=== PATIENT | female | born 1945 | race Caucasian/White ===

== ENCOUNTER 2017-10-14 15:07 | Emergency (ER) | payer MEDICARE ==
--- OUTSIDE RECORDS SUMMARY | 2017-10-14 16:05 | XMS REPORT ---
:1945 External Reference #:[id number] Author Organization [facility] Address [address] [place] [address] Phone [phone] Care Team Providers Name Role Phone Edward Mclaughlin MD Care Team Information Food Service Utility Worker Unavailable Edward Mclaughlin MD Primary Care Physician Unavailable Payers Type Date Identification Numbers Payment Provider Subscriber Commercial Policy Number: [id number] Medicare Blue Ppo Micah Palmer Group Number: [id number] [address] [address] Group Name: [place] [address] PayID: [id number] Problems Date Description Provider Status Onset: 04/30/2008 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 Active uterine body Onset: 07/20/2010 Depressive disorder Edward Mclaughlin M.D. Active Onset: 10/26/2013 Adult health examination Edward Mclaughlin M.D. Active Onset: 04/17/2017 Premature beats Edward Mclaughlin M.D. Active Onset: 09/18/2016 Abnormal glucose level Edward Mclaughlin M.D. Active Onset: 12/23/2015 Senile hyperkeratosis Edward Mclaughlin M.D. Active Onset: 12/23/2015 Mixed hyperlipidemia Edward Mclaughlin M.D. 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 Active subcutaneous tissue Onset: 10/28/2014 Electrocardiogram abnormal Edward Mclaughlin M.D. Active Onset: 04/30/2008 Osteochondropathy Edward Mclaughlin M.D. Resolved Resolved: 10/28/2014 Onset: 10/26/2013 Hyperlipidemia Edward Mclaughlin M.D. Resolved Resolved: 10/28/2014 Onset: 10/26/2013 Anxiety state Edward Mclaughlin M.D. 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 every day Potassium / Active Capsules 10Meq 1 by Unknown Chloride ER 0000 ER mouth a day Bisoprolol / Active Tablets 5mg 1 po qd Unknown Fumarate 0000 Amoxicillin 10/02/ Hx Capsules 500mg 30caps 1 by J02.9 Ceci Jordan 2017 - mouth Jason HAZARDOUS MATERIAL SPECIALIST 10/08/ three 2018 times a day Sulfamethoxazo 02/27/ Hx Tablets 800-160mg 14tabs take 1 Janneth hewitt/Trimethopri 2015 - tablet by dori Walter 10/30/ mouth 2 [employer] 2017 times a day for 7 days Cipro 02/19/ Hx Tablets 250mg 14tabs 1 by Edward Orellana 2014 - mouth Arnoldo 02/28/ twice a M.D. 2014 day for 7 days Sulfamethoxazo 02/02/ Hx Tablets 800-160mg 14tabs take 1 Edward hewitt/Trimethopri 2015 - tablet by dori Mclaughlin DS 02/14/ mouth 2 M.D. 2015 times a day for 7 days Zostavax 10/28/ Hx Solution [id number] 1dose inject Edward F. 2015 - Rec .65ML Shallish, 10/28/ M.D. 2015 Doxycycline 10/28/ Hx Capsules 100mg 20caps take one Edward F. Hyclate 2014 - capsule Shallish, 11/08/ by mouth M.D. 2014 twice a day Zostavax 10/26/ Hx Solution [id number]/0 1dose inject Edward F. 2013 - Rec .65ML Shallish, 10/28/ M.D. 2014 Amoxicillin 09/29/ Hx Tablets 875mg 20tabs 1 po bid 465.9 Molly 2013 - x 10 ZARI Willett 10/24/ days 2013 Doxycycline 10/26/ Hx Capsules 100mg 2caps 2 po once 911.4 Petty Hyclate 2011 - Tamar, 07/24/ [employer] 2012 Evista 04/25/ Hx 60mg 90unit 1 po qd Edward F. 2003 - s Shallish, 03/29/ M.D. 2008 Bactrim DS 04/25/ Hx 20unit 1 po bid Edward F. 2003 - s Shallish, M.D. 2008 Pyridium 04/25/ Hx 100mg 15unit 1 PO tid Edward F. 2003 - s prn Shallish, M.D. 2008 Actonel 08/07/ Hx 5mg 30unit One PO qd Rick Rico 2001 - s Am 30Min Midura, 04/25/ Before M.D. 2003 Food Fosamax 06/18/ Hx 70mg 8units 1 po Edward F. 2000 - weekly Shallish, 04/25/ M.D. 2003 Toprol XL / Hx Tablets ER 25mg 1 by Unknown 0000 - 24HR mouth 04/17/ every day 2017 Immunizations CPT Code Status Date Vaccine Lot # [id number] Given 06/07/2015 High-Dose, Influenza Virus Vacccine-fluzone 65 and older [id number] Given 10/28/2014 Zostivax 25828 Given 10/28/2014 Pneumococcal Conjugate Vacc-13 [id number] 95101 Given 04/15/2014 High-Dose, Influenza Virus Vacccine-fluzone 65 and older 88704 Given 04/17/2013 DO Not Use Split Influenza Virus Vaccine [id number] Given 10/24/2012 Pneumococcal Immunization [id number] Given 06/04/2012 DO Not Use Split Influenza Virus Vaccine 93540 Given 07/20/2010 DO Not Use Split Influenza Virus Vaccine [id number] Given 04/30/2008 Tdap Tetanus, W Pertussis [id number] Vital Signs Date Vital Result Comment 10/08/2017 BP Systolic 108 mmHg BP Diastolic 68 mmHg Heart Rate 66 /min Body Temperature 98.2 F Height 63.75 inches 5'3.75" measured 04/17/17 10/02/2017 BP Systolic 108 mmHg BP Diastolic 60 mmHg Heart Rate 66 /min Body Temperature 98.4 F Respiratory Rate 16 /min Height 63.75 inches 5'3.75" measured 04/17/17 Weight 172.38 lb BMI (Body Mass Index) 29.8 kg/m2 04/17/2017 BP Systolic 128 mmHg BP Diastolic 64 mmHg Heart Rate 72 /min Body Temperature 98.6 F Respiratory Rate 16 /min Height 63.75 inches 5'3.75" measured 04/17/17 Weight 176.12 lb BMI (Body Mass Index) 30.5 kg/m2 10/30/2016 BP Systolic 110 mmHg BP Diastolic 74 mmHg Heart Rate 60 /min Body Temperature 99.9 F Height 64.5 inches 5'4.50" Weight 171.00 lb BMI (Body Mass Index) 28.9 kg/m2 12/23/2015 BP Systolic 110 mmHg BP Diastolic 72 mmHg Heart Rate 72 /min Body Temperature 97.3 F Respiratory Rate 16 /min Height 64.5 inches 5'4.50" Weight 171.00 lb BMI (Body Mass Index) 28.9 kg/m2 08/08/2015 BP Systolic 112 mmHg BP Diastolic 78 mmHg Heart Rate 76 /min Body Temperature 99.5 F Height 64.5 inches 5'4.50" Weight 170.00 lb BMI (Body Mass Index) 28.7 kg/m2 10/28/2014 BP Systolic 110 mmHg BP Diastolic 64 mmHg Heart Rate 72 /min Body Temperature 98.5 F Respiratory Rate 16 /min Height 64.5 inches 5'4.50" Weight 171.00 lb BMI (Body Mass Index) 28.9 kg/m2 10/26/2013 BP Systolic 122 mmHg BP Diastolic 82 mmHg Heart Rate 60 /min Body Temperature 97.6 F Respiratory Rate 16 /min Height 64.5 inches 5'4.50" Weight 174.31 lb BMI (Body Mass Index) 29.5 kg/m2 10/24/2012 BP Systolic 118 mmHg BP Diastolic 80 mmHg Heart Rate 68 /min Body Temperature 97.6 F Respiratory Rate 16 /min Height 64.5 inches 5'4.50" Weight 173.00 lb BMI (Body Mass Index) 29.2 kg/m2 09/29/2012 BP Systolic 106 mmHg BP Diastolic 62 mmHg Heart Rate 102 /min Body Temperature 100.8 F Height 64.5 inches 5'4.50" measured Weight 172.12 lb BMI (Body Mass Index) 29.1 kg/m2 07/24/2011 BP Systolic 114 mmHg BP Diastolic 64 mmHg Heart Rate 66 /min Body Temperature 98.7 F Height 64.5 inches 5'4.50" measured Weight 172.00 lb BMI (Body Mass Index) 29.1 kg/m2 Right Visual Acuity Distance 20/40 Left Visual Acuity Distance 20/25 10/26/2010 BP Systolic 100 mmHg BP Diastolic 58 mmHg Heart Rate 64 /min Body Temperature 98.1 F Respiratory Rate 20 /min Height 64.5 inches 5'4.50" Weight 161.00 lb BMI (Body Mass Index) 27.2 kg/m2 07/20/2010 BP Systolic 110 mmHg BP Diastolic 60 mmHg Heart Rate 76 /min Body Temperature 98.9 F Height 64.5 inches 5'4.50" Weight 176.00 lb BMI (Body Mass Index) 29.7 kg/m2 06/16/2009 BP Systolic 108 mmHg BP Diastolic 70 mmHg Heart Rate 80 /min Respiratory Rate 18 /min Height 64.5 inches 5'4.50" Weight 171.00 lb BMI (Body Mass Index) 28.9 kg/m2 12/06/2008 BP Systolic 110 mmHg BP Diastolic 70 mmHg Heart Rate 80 /min Body Temperature 98.1 F Height 64.5 inches 5'4.50" Weight 168.00 lb BMI (Body Mass Index) 28.4 kg/m2 04/30/2008 BP Systolic 122 mmHg BP Diastolic 60 mmHg Heart Rate 90 /min Body Temperature 99.4 F Height 64.5 inches 5'4.50" Weight 168.00 lb BMI (Body Mass Index) 28.4 kg/m2 03/29/2008 BP Systolic 120 mmHg BP Diastolic 78 mmHg Heart Rate 72 /min Body Temperature 98.3 F Height 65.00 inches 5'5" Weight 171.00 lb BMI (Body Mass Index) 28.5 kg/m2 07/10/2005 BP Systolic 128 mmHg BP Diastolic 74 mmHg Heart Rate 78 /min Height 65.00 inches 5'5" Weight 162.00 lb BMI (Body Mass Index) 27.0 kg/m2 04/25/2004 BP Systolic 128 mmHg BP Diastolic 78 mmHg Heart Rate 76 /min Body Temperature 98.1 F Height 65.00 inches 5'5" Weight 157.00 lb BMI (Body Mass Index) 26.1 kg/m2 06/04/2001 BP Systolic 100 mmHg LG Cuff BP Diastolic 70 mmHg LG Cuff Heart Rate 60 /min Height 65.00 inches 5'5" Weight 172.50 lb BMI (Body Mass Index) 28.8 kg/m2 10/14/1998 BP Systolic 120 mmHg Ra SM Cuff BP Diastolic 70 mmHg Ra SM Cuff Height 65.00 inches 5'5" Weight 161.00 lb 05/19/1997 Body Temperature 97.8 F Height 65.00 inches 5'5" Weight 161.00 lb Results Test Date Test Result H/L Range Note Laboratory test 10/08/2017 C-Reactive <pending> finding Protein, Quant CBC Electronic Fma 10/08/2017 WBC 5.9 x10^3/UL 4.0-10.0 RBC 4.47 x10^6/UL 3.93-6.00 HGB 13.7 g/dL 12.0-17.0 HCT 41 % 35-50 MCV 91.1 fL 80.0-95.0 MCH 30.6 pg 25.6-32.2 MCHC 33.7 g/dL 32.2-36.0 RDW-CV 12.1 % 11.6-14.4 PLT 238 x10^3/UL 163-400 MPV 10.2 fL 9.4-12.4 Severino# 3.93 x10^3/UL 1.56-6.13 Lymph# 1.39 x10^3/UL 1.18-3.74 Trigg# 0.47 x10^3/UL 0.24-0.82 Eos # 0.1 x10^3/UL 0.0-0.5 Baso # 0.02 x10^3/UL 0.01-0.08 Severino% 66.9 % 34.0-70.0 Lymph % 23.6 % 20.0-52.0 Trigg% 8.0 % 5.0-12.0 Eos% 1.0 % 0.7-7.0 Baso% 0.3 % 0.1-1.2 Basic Metabolic Panel 06/03/2017 Sodium 137 mmol/L 133-145 Potassium 4.4 mmol/L 3.5-5.0 Chloride 102 mmol/L 101-111 Co2 Carbon Dioxide 29 mmol/L 22-32 Anion Gap 6 mmol/L 2-11 Glucose 88 mg/dL 70-100 Blood Urea Nitrogen 16 mg/dL 6-24 Creatinine 0.79 mg/dL 0.51-0.95 BUN/Creatinine Ratio 20.3 High 8-20 Calcium 9.4 mg/dL 8.6-10.3 Egfr Non- 71.9 >60 Egfr 92.5 >60 1 Laboratory test finding 06/03/2017 Magnesium 2.1 mg/dL 1.9-2.7 Lipid Profile 04/17/2017 Cholesterol 250 mg/dL High 120-200 Triglycerides 100 mg/dL 30-200 HDL Cholesterol 75 mg/dL 30-85 LDL (Calculated) 155 CALC High 0-129 VLDL Cholesterol 20 mg/dL 0-50 HDL Risk Factor 3.3 CALC 0.0-4.4 Comprehensive Metabolic Prof 04/17/2017 Sodium 138 mEq/L 134-149 Potassium 4.0 mEq/L 3.6-5.5 Chloride 101 mEq/L 94-112 Carbon Dioxide 26 mEq/L 21-32 Glucose 103 mg/dL 70-105 BUN 19 mg/dL 6-26 Creatinine 1.0 mg/dL 0.6-1.4 BUN/Creat Ratio 19.0 CALC 8.0-36.0 Calcium 9.8 mg/dL 8.6-10.2 Total Protein 6.8 g/dL 6.4-8.3 Albumin 4.4 g/dL 3.8-5.5 Globulin 2.4 g/dL 2.0-4.8 A/G Ratio 1.8 CALC 0.6-2.3 Alk. Phosphatase 54 U/L 30-110 Alt (SGPT) 14 U/L 7-35 Ast (Sgot) 18 U/L 5-34 Total Bilirubin 0.2 mg/dL 0.2-1.3 GFR Non- 58 ml/min/1.73m^ Low >=60 GFR >60 ml/min/1.73m^ >=60 Laboratory test finding 04/17/2017 TSH 1.21 mIU/L 0.50-6.00 CK 134 U/L 26-140 Ua - Non Micro (a) 04/17/2017 Appearance clear Color yellow Glucose, Urine (Fma/CMC/CTX) - Bilirubin - Ketones - SP Grav 1.015 Blood - PH 6.5 Protein - Urobil 0.2 Nitrite - Leukocytes (a/CMC/Centrex) - CBC Electronic ([facility]) 04/17/2017 WBC 6.5 3.6-9.6 RBC 4.16 3.90-5.70 Hemoglobin (Fma/CMC/CTX) 12.8 g/dL 12.1 - 17.2 Hematocrit (a/CMC/CTX) 37.6 % 36.1 - 50.3 Platelets 250 10^3/ul 150-400 Lymph% 30.2 % 17.0-48.0 Mixed% 4.8 Neutrophils % 65.0 Mean Corpuscular Vol 91 82.2-97.4 Mean Corpuscular Hemoglobin 30.7 27.6-33.3 Mean Corpuscular Hemo Concen 33.9 32.0-36.0 RDW 14.1 High 11.6-13.7 Mean Platelet Volume 7.9 5.5-11.0 Complete Blood Count 02/18/2017 WBC 7.6 x10^3/UL 3.6-9.6 RBC 4.44 x10^6/UL 3.90-5.70 HGB 13.7 g/dL 12.1-17.2 HCT 40 % 36-50 MCV 91.0 fL 82.2-97.4 MCH 30.8 pg 27.6-33.3 MCHC 34.0 g/dL 33.0-35.5 RDW 13.2 % 11.6-13.7 PLT 247 x10^3/UL 150-400 MPV 8.5 fL 7.4-10.4 Gran # 5.7 x10^3/UL 1.5-7.2 Lymph# 1.6 x10^3/UL 0.7-4.9 Trigg# 0.3 x10^3/UL 0.1-0.9 Gran % 72.9 % 42.2-75.2 Lymph % 22.4 % 20.5-51.1 Trigg% 4.7 % 1.7-9.3 Basic Metabolic Profile 02/18/2017 Sodium 138 mEq/L 134-149 Potassium 4.0 mEq/L 3.6-5.5 Chloride 99 mEq/L 94-112 Carbon Dioxide 25 mEq/L 21-32 Glucose 99 mg/dL 70-105 BUN 13 mg/dL 6-26 Creatinine 0.8 mg/dL 0.6-1.4 BUN/Creat Ratio 16.3 CALC 8.0-36.0 Calcium 9.4 mg/dL 8.6-10.2 GFR Non- >60 ml/min/1.73m^ >=60 GFR >60 ml/min/1.73m^ >=60 Basic Metabolic Profile 09/19/2016 Sodium 136 mEq/L 134-149 Potassium 4.2 mEq/L 3.6-5.5 Chloride 101 mEq/L 94-112 Carbon Dioxide 24 mEq/L 21-32 Glucose 100 mg/dL 70-105 BUN 17 mg/dL 6-26 Creatinine 0.8 mg/dL 0.6-1.4 BUN/Creat Ratio 21.3 CALC 8.0-36.0 Calcium 9.9 mg/dL 8.6-10.2 GFR Non- >60 ml/min/1.73m^ >=60 GFR >60 ml/min/1.73m^ >=60 Laboratory test finding 09/19/2016 Hemoglobin A1c (Fma) 4.9 % % 4.1-5.7 Laboratory test finding 08/29/2016 Magnesium, Serum 2.1 mEq/L 1.2-2.1 Complete Blood Count 08/29/2016 WBC 5.6 x10^3/UL 3.6-9.6 RBC 4.22 x10^6/UL 3.90-5.70 HGB 13.0 g/dL 12.1-17.2 HCT 38 % 36-50 MCV 91.0 fL 82.2-97.4 MCH 30.9 pg 27.6-33.3 MCHC 33.9 g/dL 33.0-35.5 RDW 13.9 % High 11.6-13.7 PLT 249 x10^3/UL 150-400 MPV 8.5 fL 7.4-10.4 Gran # 4.0 x10^3/UL 1.5-7.2 Lymph# 1.5 x10^3/UL 0.7-4.9 Trigg# 0.1 x10^3/UL 0.1-0.9 Gran % 69.1 % 42.2-75.2 Lymph % 27.7 % 20.5-51.1 Trigg% 3.2 % 1.7-9.3 Laboratory test finding 08/29/2016 TSH 1.61 mIU/L 0.50-6.00 Comprehensive Metabolic Prof 08/29/2016 Sodium 142 mEq/L 134-149 Potassium 3.8 mEq/L 3.6-5.5 Chloride 105 mEq/L 94-112 Carbon Dioxide 26 mEq/L 21-32 Glucose 182 mg/dL High 70-105 2 BUN 16 mg/dL 6-26 Creatinine 0.8 mg/dL 0.6-1.4 BUN/Creat Ratio 20.0 CALC 8.0-36.0 Calcium 9.4 mg/dL 8.6-10.2 Total Protein 6.9 g/dL 6.4-8.3 Albumin 4.2 g/dL 3.8-5.5 Globulin 2.7 g/dL 2.0-4.8 A/G Ratio 1.6 CALC 0.6-2.3 Alk. Phosphatase 51 U/L 30-110 Alt (SGPT) 11 U/L 7-35 Ast (Sgot) 18 U/L 5-34 Total Bilirubin 0.4 mg/dL 0.2-1.3 GFR Non- >60 ml/min/1.73m^ >=60 GFR >60 ml/min/1.73m^ >=60 Laboratory test finding 12/23/2015 TSH 1.96 mIU/L 0.50-6.00 Lipid Profile 12/23/2015 Cholesterol 231 mg/dL High 120-200 Triglycerides 126 mg/dL 30-200 HDL Cholesterol 65 mg/dL 30-85 LDL (Calculated) 141 CALC High 0-129 VLDL Cholesterol 25 mg/dL 0-50 HDL Risk Factor 3.6 CALC 0.0-4.4 Comprehensive Metabolic Prof 12/23/2015 Sodium 139 mEq/L 134-149 Potassium 4.6 mEq/L 3.6-5.5 Chloride 102 mEq/L 94-112 Carbon Dioxide 23 mEq/L 21-32 Glucose 101 mg/dL 70-105 BUN 18 mg/dL 6-26 Creatinine 0.8 mg/dL 0.6-1.4 BUN/Creat Ratio 22.5 CALC 8.0-36.0 Calcium 9.9 mg/dL 8.6-10.2 Total Protein 6.7 g/dL 6.4-8.3 Albumin 4.1 g/dL 3.8-5.5 Globulin 2.6 g/dL 2.0-4.8 A/G Ratio 1.6 CALC 0.6-2.3 Alk. Phosphatase 57 U/L 30-110 Alt (SGPT) 13 U/L 7-35 Ast (Sgot) 17 U/L 5-34 Total Bilirubin 0.2 mg/dL 0.2-1.3 GFR Non- >60 ml/min/1.73m^ >=60 GFR >60 ml/min/1.73m^ >=60 Ua - Micro (a) 12/23/2015 Appearance CLEAR Color YELLOW Glucose, Urine (Fma/CMC/CTX) NEG Bilirubin NEG Ketones NEG SP Grav 1.010 Blood TRACE-INTACT PH 7.0 Protein NEG Urobil 0.2 Nitrite NEG Leukocytes (Fma/CMC/Centrex) NEG WBC (Fma,Centrex) 0-1 RBC 1-2 Epith RARE /Lpf Bacteria TRACE /Hpf CBC Electronic (a) 12/23/2015 WBC 6.9 3.6-9.6 RBC 4.05 3.90-5.70 Hemoglobin (Fma/CMC/CTX) 12.8 g/dL 12.1 - 17.2 Hematocrit (Fma/CMC/CTX) 37.6 % 36.1 - 50.3 Platelets 240 10^3/ul 150-400 Lymph% 26.5 % 17.0-48.0 Mixed% 7.1 Neutrophils % 66.4 Mean Corpuscular Vol 93 82.2-97.4 Mean Corpuscular Hemoglobin 31.5 27.6-33.3 Mean Corpuscular Hemo Concen 34.0 32.0-36.0 RDW 13.1 11.6-13.7 Mean Platelet Volume 8.4 5.5-11.0 Laboratory test finding 02/18/2015 Urine Culture [place] POSITIVE E.Coli 3 Ua - Non Micro (a) 10/28/2014 Appearance CLEAR Color YELLOW Glucose, Urine (a/[facility]CTX) NEG Bilirubin NEG Ketones NEG SP Grav 1.010 Blood NEG PH 7.0 Protein NEG Urobil 0.2 Nitrite NEG Leukocytes ([facility]) NEG Complete Blood Count 10/28/2014 WBC 5.4 x10^3/UL 3.6-9.6 RBC 4.22 x10^6/UL 3.90-5.70 HGB 13.1 g/dL 12.1-17.2 HCT 39 % 36-50 MCV 92.0 fL 82.2-97.4 MCH 31.0 pg 27.6-33.3 MCHC 33.9 g/dL 33.0-35.5 RDW 13.0 % 11.6-13.7 PLT 263 x10^3/UL 150-400 MPV 8.3 fL 7.4-10.4 Gran # 3.6 x10^3/UL 1.5-7.2 Lymph# 1.6 x10^3/UL 0.7-4.9 Trigg# 0.2 x10^3/UL 0.1-0.9 Gran % 65.1 % 42.2-75.2 Lymph % 30.0 % 20.5-51.1 Trigg% 4.9 % 1.7-9.3 Comprehensive Metabolic Prof 10/28/2014 Sodium 138 mEq/L 134-149 Potassium 4.4 mEq/L 3.6-5.5 Chloride 99 mEq/L 94-112 Carbon Dioxide 32 mEq/L 21-32 Glucose 90 mg/dL 70-105 BUN 16 mg/dL 6-26 Creatinine 0.7 mg/dL 0.6-1.4 BUN/Creat Ratio 22.9 CALC 8.0-36.0 Calcium 9.6 mg/dL 8.6-10.2 Total Protein 7.0 g/dL 6.4-8.3 Albumin 4.2 g/dL 3.8-5.5 Globulin 2.8 g/dL 2.0-4.8 A/G Ratio 1.5 CALC 0.6-2.3 Alk. Phosphatase 48 U/L 30-110 Alt (SGPT) 15 U/L 7-35 Ast (Sgot) 18 U/L 5-34 Total Bilirubin 0.5 mg/dL 0.2-1.3 Lipid Profile 10/28/2014 Cholesterol 247 mg/dL High 120-200 Triglycerides 62 mg/dL 30-200 HDL Cholesterol 72 mg/dL 30-85 LDL (Calculated) 163 CALC High 0-129 VLDL Cholesterol 12 mg/dL 0-50 HDL Risk Factor 3.4 CALC 0.0-4.4 Laboratory test finding 10/28/2014 TSH 1.47 mIU/L 0.50-6.00 4 Vitamin D25 28 Low 30-100 Surgical Pathology 11/25/2013 S RUN DATE: 11/26/ <SEE NOTE> 5 Ua - Non Micro (Fma) 10/26/2013 Appearance clear Color yellow Glucose, Urine (Fma/CMC/CTX) neg Bilirubin neg Ketones neg SP Grav <1.005 Blood neg PH 6.0 Protein neg Urobil 0.2 Nitrite neg Leukocytes (Fma/CMC/Centrex) neg Comprehensive Metabolic Prof 10/26/2013 Sodium 139 mEq/L 134-149 Potassium 3.9 mEq/L 3.6-5.5 Chloride 99 mEq/L 94-112 Carbon Dioxide 26 mEq/L 21-32 Glucose 87 mg/dL 70-105 BUN 15 mg/dL 6-26 Creatinine 0.8 mg/dL 0.6-1.4 BUN/Creat Ratio 18.8 CALC 8.0-36.0 Calcium 9.9 mg/dL 8.6-10.2 Total Protein 6.7 g/dL 6.3-8.1 Albumin 4.4 g/dL 3.8-5.5 Globulin 2.3 g/dL 2.0-4.8 A/G Ratio 1.9 CALC 0.6-2.3 Alk. Phosphatase 62 U/L 30-110 Alt (SGPT) 12 U/L 7-35 Ast (Sgot) 19 U/L 5-34 Total Bilirubin 0.4 mg/dL 0.2-1.3 Laboratory test finding 10/26/2013 TSH 1.92 mIU/L 0.50-6.00 Complete Blood Count 10/26/2013 WBC 5.0 x10^3/UL 3.6-9.6 RBC 4.01 x10^6/UL 3.90-5.70 HGB 12.2 g/dL 12.1-17.2 HCT 37 % 36-50 MCV 91.0 fL 82.2-97.4 MCH 30.5 pg 27.6-33.3 MCHC 33.5 g/dL 33.0-35.5 RDW 11.6 % 11.6-13.7 PLT 223 x10^3/UL 150-400 MPV 8.7 fL 7.4-10.4 Gran # 3.6 x10^3/UL 1.5-7.2 Lymph# 1.2 x10^3/UL 0.7-4.9 Trigg# 0.2 x10^3/UL 0.1-0.9 Gran % 69.7 % 42.2-75.2 Lymph % 25.1 % 20.5-51.1 Trigg% 5.2 % 1.7-9.3 Laboratory test finding 10/26/2013 [facility] see scanned CBC Electronic (a) 10/28/2012 WBC 5.0 3.6-9.6 RBC 4.36 3.90-5.70 Hemoglobin (Fma/CMC/CTX) 13.3 g/dL 12.1 - 17.2 Hematocrit (Fma/CMC/CTX) 39.7 % 36.1 - 50.3 Platelets 289 10^3/ul 150-400 Lymph% 32.9 20.5-51.1 Mixed% 6.0 Neutrophils % 61.1 Mean Corpuscular Vol 91 82.2-97.4 Mean Corpuscular Hemoglobin 30.4 27.6-33.3 Mean Corpuscular Hemo Concen 33.4 32.0-36.0 RDW 12.1 11.6-13.7 Mean Platelet Volume 7.7 6.5-11.0 Comprehensive Metabolic Prof 10/28/2012 Albumin 4.4 g/dL 3.8-5.5 Alk. Phos. 61 U/L 30-110 Alt (SGPT) 11 U/L 7-35 Ast (Sgot) 17 U/L 5-34 BUN 16 mg/dL 6-26 Calcium 9.7 mg/dL 8.6-10.2 Chloride 98 mEq/L 94-112 Creatinine 0.8 mg/dL 0.6-1.4 Carbon Dioxide 27 mEq/L 21-32 Glucose 100 mg/dL 70-105 Sodium 139 mEq/L 134-149 Total Bilirubin 0.4 mg/dL 0.2-1.3 Total Protein 6.9 g/dL 6.3-8.1 Potassium 5.4 mEq/L 3.6-5.5 Globulin 2.6 g/dL 2.0-4.8 A/G Ratio 1.7 Calc 0.6-2.3 BUN/Creat Ratio 18.7 Calc 8.0-36.0 Lipid Profile 10/28/2012 Cholesterol 239 mg/dL High 120-200 HDL 65 mg/dL 30-85 Triglycerides 56 mg/dL 30-200 HDL Risk Factor 3.7 CALC 0.0-4.4 LDL (Calculated) 163 CALC High 0-129 VLDL (Calculated) 11 mg/dL 0-50 Laboratory test finding 10/28/2012 TSH 1.96 mIU/L 0.50-6.00 Laboratory test finding 10/28/2012 Vitamin D, 25 Oh 19.9 ng/mL Low 30.0- 100.0 6 Ua - Non Micro (a) 10/24/2012 Appearance CLEAR Color YELLOW Glucose, Urine (Fma/CMC/CTX) NEG Bilirubin NEG Ketones NEG SP Grav 1.005 Blood NEG PH 6.5 Protein NEG Urobil 0.2 Nitrite NEG Leukocytes (a/[facility]) NEG Laboratory test finding 07/24/2011 TSH 2.30 mIU/L 0.50-6.00 Free T4 1.10 ng/dL 0.75-1.54 Comprehensive Metabolic Prof 07/24/2011 Albumin 4.4 g/dL 3.8-5.5 Alk. Phos. 47 U/L 30-110 Alt (SGPT) 11 U/L 7-35 Ast (Sgot) 17 U/L 5-34 BUN 15 mg/dL 6-26 Calcium 9.5 mg/dL 8.6-10.2 Chloride 100 mEq/L 94-112 Creatinine 0.8 mg/dL 0.6-1.4 Carbon Dioxide 25 mEq/L 21-32 Glucose 83 mg/dL 70-105 Sodium 137 mEq/L 134-149 Total Bilirubin 0.4 mg/dL 0.2-1.3 Total Protein 6.7 g/dL 6.3-8.1 Potassium 4.9 mEq/L 3.6-5.5 Globulin 2.3 g/dL 2.0-4.8 A/G Ratio 1.9 Calc 0.6-2.2 BUN/Creat Ratio 19.6 Calc 8.0-36.0 Lipid Profile 07/24/2011 Cholesterol 225 mg/dL High 120-200 HDL 68 mg/dL 30-85 Triglycerides 59 mg/dL 30-200 HDL Risk Factor 3.3 CALC 0.0-4.0 LDL (Calculated) 145 CALC High 0-129 VLDL (Calculated) 12 mg/dL 0-50 CBC Electronic ([facility]) 07/24/2011 WBC 4.9 3.6-9.6 RBC 4.36 3.90-5.70 Hemoglobin (a/CMC/CTX) 13.4 g/dL 12.1 - 17.2 Hematocrit ([facility]/CMC/CTX) 39.6 % 36.1 - 50.3 Platelets 266 10^3/ul 150-400 Lymph% 24.9 20.5-51.1 Mixed% 5.9 Neutrophils % 69.2 Mean Corpuscular Vol 91 82.2-97.4 Mean Corpuscular Hemoglobin 30.7 27.6-33.3 Mean Corpuscular Hemo Concen 33.8 32.0-36.0 RDW 12.0 11.6-13.7 Mean Platelet Volume 8.8 6.5-11.0 Ua - Non Micro ([facility]) 07/24/2011 Appearance CLEAR Color YELLOW Glucose NEG Bilirubin NEG Ketones NEG SP Grav 1.010 Blood NEG PH 7.0 Protein NEG Urobil 0.2 Nitrite NEG Leukocytes ([facility] NEG Laboratory test finding 07/24/2011 Vitamin D, 25 Oh 21.8 ng/mL Low 30.0- 100.0 7 Comprehensive Metabolic Prof 07/21/2010 Albumin 4.4 g/dL 3.8-5.5 Alk. Phos. 54 U/L 30-110 Alt (SGPT) 10 U/L 7-35 Ast (Sgot) 17 U/L 5-34 BUN 18 mg/dL 6-26 Calcium 9.3 mg/dL 8.6-10.2 Chloride 105 mEq/L 94-112 Creatinine 0.8 mg/dL 0.6-1.4 Carbon Dioxide 28 mEq/L 21-32 Glucose 88 mg/dL 70-105 Sodium 139 mEq/L 134-149 Total Bilirubin 0.4 mg/dL 0.2-1.3 Total Protein 6.9 g/dL 6.3-8.1 Potassium 5.0 mEq/L 3.6-5.5 Globulin 2.5 g/dL 2.0-4.8 A/G Ratio 1.8 Calc 0.6-2.2 BUN/Creat Ratio 22.5 Calc 8.0-36.0 Lipid Profile 07/21/2010 Cholesterol 216 mg/dL High 120-200 HDL 66 mg/dL 30-85 Triglycerides 56 mg/dL 30-200 HDL Risk Factor 3.3 CALC Low 4.2-7.0 LDL (Calculated) 138 CALC High 0-129 VLDL (Calculated) 11 mg/dL 0-50 Laboratory test finding 07/21/2010 TSH 2.13 mIU/L 0.50-6.00 CBC ([facility]) 07/21/2010 WBC 4.7 3.6-9.6 RBC 4.34 3.90-5.70 Hemoglobin ([facility]/CMC/CTX) 13.5 g/dL 12.1 - 17.2 Hematocrit (a/CMC/CTX) 39.2 % 36.1 - 50.3 Platelets 220 10^3/ul 150-400 Lymph% 24.2 20.5-51.1 Mixed% 7.1 Neutrophils % 68.7 Mean Corpuscular Vol 90 82.2-97.4 Mean Corpuscular Hemoglobin 31.1 27.6-33.3 Mean Corpuscular Hemo Concen 34.4 32.0-36.0 RDW 11.9 11.6-13.7 Mean Platelet Volume 9.0 6.5-11.0 Ua - Non Micro ([facility]) 07/20/2010 Appearance CLEAR Color YELLOW Glucose, Urine (a/CMC/CTX) NEG Bilirubin NEG Ketones NEG SP Grav 1.010 Blood NEG PH 7.0 Protein NEG Urobil 0.2 Nitrite NEG Leukocytes ([place] [place] NEG Lipid Profile 06/16/2009 Cholesterol 224 mg/dL High 120-200 HDL 76 mg/dL 30-85 Triglycerides 87 mg/dL 30-200 HDL Risk Factor 3.0 CALC Low 4.2-7.0 LDL (Calculated) 131 CALC High 0-129 VLDL (Calculated) 17 mg/dL 0-50 Comprehensive Metabolic Prof 06/16/2009 Albumin 4.5 g/dL 3.8-5.5 Alk. Phos. 53 U/L 30-110 Alt (SGPT) 12 U/L 7-35 Ast (Sgot) 18 U/L 5-34 BUN 13 mg/dL 6-26 Calcium 9.5 mg/dL 8.6-10.2 Chloride 103 mEq/L 94-112 Creatinine 0.8 mg/dL 0.6-1.4 Carbon Dioxide 28 mEq/L 21-32 Glucose 80 mg/dL 70-105 Sodium 142 mEq/L 134-149 Total Bilirubin 0.4 mg/dL 0.2-1.3 Total Protein 6.9 g/dL 6.3-8.1 Potassium 5.0 mEq/L 3.6-5.5 Globulin 2.4 g/dL 2.0-4.8 A/G Ratio 1.9 Calc 0.6-2.2 BUN/Creat Ratio 16.2 Calc 8.0-36.0 Ua - Non Micro (a) 06/16/2009 Appearance clear Color yellow Glucose, Urine (a[place]CTX[place] neg Bilirubin neg Ketones neg SP Grav 1.010 Blood neg PH 7.5 Protein neg Urobil 0.2 Nitrite neg Leukocytes (a[place] neg Complete Blood Count 06/16/2009 WBC 8.2 x10^3/uL 3.6-9.6 Gran# 6.7 x10^3/uL 1.5-7.2 Gran% 81.6 % High 42.2-75.2 HCT 38 % 36-50 HGB 12.9 g/dL 12.1-17.2 Lymph# 1.2 x10^3/uL 0.7-4.9 Lymph% 14.4 % Low 20.5-51.1 MCH 30.6 pg 27.6-33.3 MCV 90.2 fL 82.2-97.4 MCHC 33.9 g/dL 33.0-35.5 Mo# 0.3 x10^3/uL 0.1-0.9 Mo% 4.0 % 1.7-9.3 MPV 9.3 fL 7.4-10.4 PLT 214 x10^3/uL 150-400 RBC 4.22 x10^6/uL 3.90-5.70 RDW 12.0 % 11.6-13.7 Laboratory test finding 06/16/2009 TSH 1.01 mIU/L 0.50-6.00 Lipid Profile 05/17/2008 Cholesterol 233 mg/dL High 120-200 8 HDL 58 mg/dL 30-85 8 Triglycerides 102 mg/dL 30-200 8 HDL Risk Factor 4.0 CALC Low 4.2-7.0 8 LDL (Calculated) 154 CALC High 0-129 8 VLDL (Calculated) 20 mg/dL 0-50 8 Ua - Micro ([facility]) 04/30/2008 Appearance clear Color yellow Glucose, Urine ([facility]/CMC/CTX) - Bilirubin - Ketones trace SP Grav 1.025 Blood trace PH 6.5 Protein - Urobil 0.2 Nitrite - Leukocytes ([facility]) - Hyaline - /Lpf Granular - /Lpf WBC ([facility]) 0-1 RBC 0-2 Mucus ([facility]ma/CBC/[facility]) - /Lpf Epith occ /Lpf Bacteria rare /Hpf Amorphous ([facility]/CMC/[facility]) - /Lpf Crystals, Fluid ([facility]ma/CMC/CTX) - Z#Comments - Ict Hemoccult ([facility]) 04/08/2008 Ict Hemoccult (1) NEG 03/30/08 Ict Hemoccult-(2) NEG 03/31/08 Ict-Hemoccult (3) NEG 04/01/08 Laboratory test finding 04/06/2008 Free T4 1.17 ng/dL 0.75-1.54 8 TSH 2.18 mIU/L 0.50-6.00 8 Comprehensive Metabolic Prof 04/06/2008 Albumin 4.6 g/dL 3.8-5.5 8 Alk. Phos. 57 U/L 30-110 8 Alt (SGPT) 12 U/L 7-35 8 Ast (Sgot) 19 U/L 5-34 8 BUN 21 mg/dL 6-26 8 Calcium 10.3 mg/dL High 8.6-10.2 8, 9 Chloride 100 mEq/L 94-112 8 Creatinine 1.0 mg/dL 0.6-1.4 8 Carbon Dioxide 26 mEq/L 21-32 8 Glucose 94 mg/dL 70-105 8 Sodium 139 mEq/L 134-149 8 Total Bilirubin 0.4 mg/dL 0.2-1.3 8 Total Protein 7.6 g/dL 6.3-8.1 8 Potassium 4.9 mEq/L 3.6-5.5 8 Globulin 3.1 g/dL 2.0-4.8 8 A/G Ratio 1.5 Calc 0.6-2.2 8 BUN/Creat Ratio 20.5 Calc 8.0-36.0 8 Complete Blood Count 04/06/2008 WBC 5.8 x10^3/u 3.6-9.6 8 Gran# 3.6 x10^3/u 1.5-7.2 8 Gran% 62.9 % 42.2-75.2 8 HCT 41 % 36-50 8 HGB 13.7 g/dL 12.1-17.2 8 Lymph# 1.9 x10^3/u 0.7-4.9 8 Lymph% 33.0 % 20.5-51.1 8 MCH 29.3 pg 27.6-33.3 8 MCV 87.2 fL 82.2-97.4 8 MCHC 33.7 g/dL 33.0-35.5 8 Mo# 0.2 x10^3/u 0.1-0.9 8 Mo% 4.1 % 1.7-9.3 8 MPV 8.8 fL 7.4-10.4 8 PLT 256 x10^3/u 150-400 8 RBC 4.67 x10^6/u 3.90-5.70 8 RDW 12.0 % 11.6-13.7 8 Laboratory test finding 05/09/2004 Urine Culture ([facility] NEGATIVE Laboratory test finding 05/09/2004 Urine Culture ([facility] NEGATIVE Ua - Micro ([facility]) 05/09/2004 Appearance CLEAR Color LT YELLOW Glucose NEGATIVE Bilirubin NEGATIVE Ketones NEGATIVE SP Grav <1.005 Blood NEGATIVE PH 7.0 Protein NEGATIVE Urobil 0.2 Nitrite NEGATIVE Leukocytes NEGATIVE Hyaline - /Lpf Granular - /Lpf WBC'S 0-1 RBC'S - Mucus - /Lpf Epith RARE Bacteria RARE Amorphous - /Lpf Crystals - /Lpf Comments - Ua - Micro ([facility]) 04/25/2004 Appearance CLOUDY Color LT YELLOW Glucose NEG Bilirubin NEG Ketones 1+ SP Grav 1.010 Blood 3+ PH 6.0 Protein SSA 1+ Urobil 0.2 Nitrite NEG Leukocytes 2+ Hyaline - /Lpf Granular - /Lpf WBC'S PACKED RBC'S PACKED Mucus - /Lpf Epith - Bacteria - Amorphous - /Lpf Crystals - /Lpf Comments - CBC Electronic [place] 10/29/2001 WBC 5.8 4.8-10.8 RBC 4.54 4.2-5.4 Hemoglobin 13.9 g/dL 12.0-16.0 Hematocrit 41 % 35-47 Mean Corpuscular Vol 90 79-97 Mean Corpuscular Hemaglobin 31 27-31 Mean Corpuscular Hemo Concen 34 32-36 RDW 11 10.5-15 Platelets 259 CUMM 150-450 Mean Platelet Volume 9.0 7.4-10.4 Granulocytes 66.9 % 38-83 Lymphocytes 23.6 % 20-45 Monocytes 6.6 % 1-9 Eosinophil 2.3 0-6 Basophil% 0.6 0-2 Abs Lymphs 1.4 1.0-4.8 Abs Mononuclear 0.4 0-0.8 Abs Grans 3.9 1.5-7.7 Abs Eosinophils 0.1 0-0.6 Abs Basophils 0 0-0.2 CBC Electronic [place] 04/29/2001 WBC 5.8 4.8-10.8 RBC 4.47 4.2-5.4 Hemoglobin 13.8 g/dL 12.0-16.0 Hematocrit 40 % 35-47 Mean Corpuscular Vol 90 79-97 Mean Corpuscular Hemaglobin 31 27-31 Mean Corpuscular Hemo Concen 34 32-36 RDW 12 10.5-15 Platelets 253 CUMM 150-450 Mean Platelet Volume 8.7 7.4-10.4 Granulocytes 67.4 % 38-83 Lymphocytes 23.6 % 20-45 Monocytes 6.7 % 1-9 Eosinophil 1.7 0-6 Basophil% 0.6 0-2 Abs Lymphs 1.4 1.0-4.8 Abs Mononuclear 0.4 0-0.8 Abs Grans 3.9 1.5-7.7 Abs Eosinophils 0.1 0-0.6 Abs Basophils 0 0-0.2 1 Because ethnic data is not always readily available, this report includes an eGFR for both -Americans and non- Americans. The National Kidney Disease Education Program (NKDEP) does not endorse the use of the MDRD equation for patients that are not between the ages of 18 and 70, are , have extremes of body size, muscle mass, or nutritional status, or are non- or non-. According to the National Kidney Foundation, irrespective of diagnosis, the stage of the disease is based on the level of kidney function: Stage Description GFR(mL/min/1.73 m(2)) 1 Kidney damage with normal or decreased GFR 90 2 Kidney damage with mild decrease in GFR 60-89 3 Moderate decrease in GFR 30-59 4 Severe decrease in GFR 15-29 5 Kidney failure <15 (or dialysis) 2 NON-FASTING 3 1000 cfu/mL 4 FASTING 5 RUN DATE: 11/26/13 [facility] LAB LIVE PAGE 1 RUN TIME: [address] [place] [id number] Specimen Inquiry Name: MICAH PALMER : [address]: Tobi Cavazos MD Acct: [id number] Unit: [id number] AGE: 68 Location: ENDO Re11/25/13 SEX: F Status: REG REF SPEC: [id number] [place]: 11/25/13- SUBM DR: Tobi Cavazos MD REQ: [id number] RECD: 11/25/13-5094 STATUS: IZZY NESBITT DR: Edward Mclaughlin MD _ ORDERED: LEVEL IV FINAL DIAGNOSIS Colon, cecum, biopsy: A. Tubular adenoma. B. No high grade dysplasia or malignancy. CLINICAL HISTORY Screening colonoscopy for follow-up; history of uterine cancer POST-OPERATIVE DIAGNOSIS Screening colonoscopy into cecum, prep good - small cecal polyp removed GROSS DESCRIPTION The specimen is received in formalin labeled Micah Palmer, Biopsy Cecal Polyp, and consists of a 0.2 x 0.2 x 0.1 cm. araiza-white polypoid soft tissue fragment. Submitted entirely, one cassette. Signed (signature on file) Brian Solis MD 1458 END OF REPORT * ML=Testing performed at Main Lab DEPARTMENT OF PATHOLOGY, [address] [place] [address] Brian Solis M.D. Director [facility] # [id number] 6 Vitamin D deficiency has been defined by the [place] of Medicine and an Endocrine Society practice guideline as a level of serum 25-OH vitamin D less than 20 ng/mL (1,2). The Endocrine Society went on to further define vitamin D insufficiency as a level between 21 and 29 ng/mL (2). 1. IOM ([place] of Medicine). 2010. Dietary reference intakes for calcium and D. [place]: The National Academies Press. 2. Darnell MF, Efren NC, Sen LAWSON, et al. Evaluation, treatment, and prevention of vitamin D deficiency: an Endocrine Society clinical practice guideline. JCEM. 2010; 96(7):1911-30. 7 Vitamin D deficiency has been defined by the [place] of Medicine and an Endocrine Society practice guideline as a level of serum 25-OH vitamin D less than 20 ng/mL (1,2). The Endocrine Society went on to further define vitamin D insufficiency as a level between 21 and 29 ng/mL (2). 1. IOM ([place] of Medicine). 2011. Dietary reference intakes for calcium and D. [place]: The National Academies Press. 2. Darnell MF, Efren MUNOZ, Sen LAWSON, et al. Evaluation, treatment, and prevention of vitamin D deficiency: an Endocrine Society clinical practice guideline. JCEM. 2010; 96(7):1911-30. 8 FASTING 9 RESULT RECHECKED Procedures Date CPT Code Description Status Comment 07/15/2017 Mammogram Completed 05/27/2017 88382 Dxa Bone Density Study One Or More Sites Completed Axial Skeleton 07/12/2016 Mammogram Completed 12/23/2015 44676 Destruction-1 Beign Lesion Completed 08/08/2015 52542 Remove Impacted Cerumen Completed 07/11/2015 Mammogram Completed 01/14/2015 30083 Dxa Bone Density Study One Or More Sites Completed Axial Skeleton 10/28/2014 69816 Electrocardiogram Complete Completed 07/09/2014 Mammogram Completed 11/25/2013 Colonoscopy Completed 10/26/2013 06430 Ultrasound Exam AAA diagnostic Completed 07/08/2013 Mammogram Completed 07/07/2012 Mammogram Completed 07/24/2011 50167 Vision Test- screening test of visual Completed acuity, quantitative, bila 07/24/2011 65040 Electrocardiogram Complete Completed 07/01/2011 Bone Mineral Density Test Completed osteopenia 06/21/2011 Mammogram Completed 07/20/2010 80471 Electrocardiogram Complete Completed 06/19/2010 Mammogram Completed 06/16/2009 Mammogram Completed 06/16/2009 20284 Electrocardiogram Complete Completed 12/17/2008 Mammogram Completed 06/17/2008 Mammogram Completed 04/30/2008 28782 Electrocardiogram Complete Completed 06/09/2007 Mammogram Completed 06/06/2006 Mammogram Completed 08/22/1998 42906 Destruction Of Flat Warts Or Molluscum Completed Contagiosum, Milia To 15 Encounters Type Date Location Provider CPT E/M Dx Office Visit 04/17/2017 2:00p Main Office Edward Mclaughlin M.D. 93814 Z85.42 F32.89 I49.3 E78.4 Z00.00 Office Visit 10/30/2016 11:30a Main Office Nikita Burton 18086 R23.8 R73.09 F32.0 Office Visit 08/08/2015 4:30p Main Office Petty Boyle, [facility] 27133 R05 H61.21 Office Visit 10/28/2014 10:00a Main Office Edward Mclaughlin M.D. 96631 V03.82 V04.81 V10.42 311 794.31 733.90 709.9 V12.72 V70.0 272.4 Office Visit 10/26/2013 9:00a [facility] Edward Mclaughlin M.D. 26919 V10.42 272.4 300.00 V70.0 Office Visit 10/24/2012 3:40p [facility] Edward Mclaughlin M.D. 47592 311 V10.42 733.90 V70.0 V03.82 Office Visit 09/29/2012 10:30a [facility] Molly WillettZARI 24444 465.9 Office Visit 07/24/2011 9:00a Main Office Edward Mclaughlin M.D. 69131 311 V10.42 733.90 V70.0 V72.0 Office Visit 10/26/2010 1:15p [facility] Petty Boyle, [employer] 12058 911.4 Office Visit 07/20/2010 1:00p Main Office Edward Mclaughlin M.D. 16226 733.90 V10.42 311 V70.0 V76.41 V04.81 Office Visit 06/16/2009 9:00a Main Office Edward Mclaughlin M.D. 68583 733.90 V10.42 272.4 311 V70.0 V76.41 Office Visit 12/06/2008 10:00a [facility] Edward Mclaughlin M.D. 55719 702.19 Office Visit 04/30/2008 1:00p Main Office Edward Mclaughlin M.D. 46482 424.0 733.90 V10.42 V70.0 V06.5 599.70 599.7 Office Visit 03/29/2008 4:40p [facility] Edward Mclaughlin M.D. 56421 787.91 Office Visit 07/10/2005 3:00p Main Office Kylee Mesa, [facility] 67477 V58.69 380.4 Office Visit 04/25/2004 12:15p Main Office Edward Mclaughlin M.D. 72379 599.0 Office Visit 06/04/2001 4:00p [facility] Edward Mclaughlin M.D. 76130 Plan of Care 10/08/2017 - Ceci Gomez, NPR53.83 Other fatigueComments:we will run some labs, could be due to post illness [id number] Acute pharyngitis, unspecifiedComments:patient was instructed to call or return if symptoms did not improve Supportive care: 1) Make sure you are resting. This is the only way the body can take the energy it needs to heal itself. 2) Fluids, fluids, fluids! - Drink a lot of water or other caffeine free, clear liquids - Use a humidifier in your room at night - Try either hot tea with lemon or honey or some cool ice pops if that feels better. 4) Make sure you are washing your hands well so you are not spreading your illness to the community. 5) Switch out your toothbrush to prevent reinfection. 6) you can try taking Childrens Tylenol to help ease the pain of the sore throatCall if you have any questions or concerns, worsening condition or failure to improve.G50.1 Atypical facial painComments:will try stopping amox and using antiinflammatories will notify in a few days to let me know how sheis - if there is a rash will treat as shingles, if not we will try some steroids to reduce [id number] NauseaComments:supportive care discussed, return if worsening or failure to improveAllComments:~B_~U_Medication Management~b_~u_ Patient Understands medications she's taking? Yes No Are there Barriers to Adherence? Yes No Has the patient been asked about herbal supplements and therapies, and OTC meds? Yes No ~B_~U_Care Plan~b_~u_1. Patient has been queried about patient's goals/preferences and functional/lifestyle goals at relevant visits. If relevant, describe: na2. Treatment goals as explained to the patient: above3. Are there barriers to meeting treatment goals? Yes No If Yes, please describe:4. Self-Management goals as described to the patient: Yes NoFollow up:As always, we strongly encourage a healthy diet and making physical activity a part of your every day life. If you have questions about how or where to start, please contact the office.
--- OUTSIDE RECORDS SUMMARY | 2017-10-14 16:06 | XMS REPORT ---
:1945 External Reference #:[id number] Author Organization [facility] Address [address] [place] [address] Phone [phone] Care Team Providers Name Role Phone Edward Mclaughlin MD Care Team Information Gaming Department Head Unavailable Edward Mclaughlin MD Primary Care Physician Unavailable Payers Type Date Identification Numbers Payment Provider Subscriber Commercial Policy Number: [id number] Medicare Blue Ppo Micah Palmer Group Number: [id number] [address] [address] Group Name: [place] [address] PayID: [id number] Problems Date Description Provider Status Onset: 04/30/2008 [...] : (age 57 Years) Father due to OR smoker : (age 49 Years) Mother due to Cancer, Brain First Brother Hypercholesterolemia Social History Type Date Description Comments Marital Status Patient is Occupation [employer]ing [place], retired Occupation Nurse in the past Cigarette Use Nonsmoker ETOH Use Rare Smoking Patient has never smoked Allergies, Adverse Reactions, Alerts Date Description Reaction Status Severity Comments 10/30/2016 Sulfa rash active 10/30/2016 NKDA inactive Medications Medication Date Status Form Strength Qnty SIG Indications Ordering Provider Amoxicillin 10/02/ Active Capsules 500mg 30caps 1 by J02.9 Ceci Nikki 2018 mouth Gomez, POLICY LOAN CALCULATOR three times a day Diltiazem HCL 02/28/ Active Caps ER 120mg 1 by Unknown ER 2017 24HR mouth every day Citalopram 06/16/ Active Tablets 10mg 90tabs take one Edward FRivka Hydrobromide 2008 tablet by fanny Mclaughlin M.DRivka every day Potassium / Active Capsules 10Meq 1 by Unknown Chloride ER 0000 ER mouth a day Bisoprolol / Active Tablets 5mg 1 po qd Unknown Fumarate 0000 Sulfamethoxazo 02/27/ Hx Tablets 800-160mg 14tabs take 1 Janneth le/Trimethopri 2015 - tablet by dori Walter 10/30/ mouth 2 CEMENT TILE MAKER 2017 times a day for 7 days Cipro 02/19/ Hx Tablets 250mg 14tabs 1 by Edward Orellana 2015 - fanny Mclaughlin 02/28/ twice a M.D. 2014 day for 7 days Sulfamethoxazo 02/02/ Hx Tablets 800-160mg 14tabs take 1 Edwrad hewitt/Trimethopri 2014 - tablet by dori Mclaughlin 02/14/ mouth 2 M.D. 2015 times a day for 7 days Zostavax 10/28/ Hx Solution [id number]/0 1dose inject Edward F. 2015 - Rec .65ML Shallish, 10/28/ M.D. 2014 Doxycycline 10/28/ Hx Capsules 100mg 20caps take one Edward F. Hyclate 2014 - capsule Shallish, 11/08/ by mouth M.D. 2014 twice a day Zostavax 10/26/ Hx Solution 13101Ztj/0 1dose inject Edward F. 2013 - Rec .65ML Shallish, 10/28/ M.D. 2014 Amoxicillin 09/29/ Hx Tablets 875mg 20tabs 1 po bid 465.9 Molly 2013 - x 10 ZARI Willett 10/24/ days 2013 Doxycycline 10/26/ Hx Capsules 100mg 2caps 2 po once 911.4 Petty Hyclate 2011 - Tamar, 07/24/ CEMENT TILE MAKER 2012 Evista 04/25/ Hx 60mg 90unit 1 po qd Edward F. 2003 - s Shallish, 03/29/ M.D. 2008 Bactrim DS 04/25/ Hx 20unit 1 po bid Edward F. 2003 - s Shallish, 03/29/ M.D. 2008 Pyridium 04/25/ Hx 100mg 15unit 1 PO tid Edward F. 2003 - s prn Shallish, 03/29/ M.D. 2008 Actonel 08/07/ Hx 5mg 30unit One PO qd Rick Rico 2001 - s Am 30Min Midura, 04/25/ Before M.D. 2003 Food Fosamax 06/18/ Hx 70mg 8units 1 po Edward F. 2000 - weekly [facility], 04/25/ M.D. 2003 Toprol XL / Hx Tablets ER 25mg 1 by Unknown 0000 - 24HR mouth 04/17/ every day 2017 Immunizations CPT Code Status Date Vaccine Lot # [id number] Given 06/07/2015 High-Dose, Influenza Virus Vacccine-fluzone 65 and older [id number] Given 10/28/2014 Zostivax 05378 Given 10/28/2014 Pneumococcal Conjugate Vacc-13 [id number] 82331 Given 04/15/2014 High-Dose, Influenza Virus Vacccine-fluzone 65 and older 93463 Given 04/17/2013 DO Not Use Split Influenza Virus Vaccine 58383 Given 10/24/2012 Pneumococcal Immunization [id number] 45694 Given 06/04/2012 DO Not Use Split Influenza Virus Vaccine 78930 Given 07/20/2010 DO Not Use Split Influenza Virus Vaccine [id number] 09339 Given 04/30/2008 Tdap Tetanus, W Pertussis [id number] Vital Signs Date Vital Result Comment 10/02/2017 BP Systolic 108 mmHg BP Diastolic [...] Test Date Test Result H/L Range Note Basic Metabolic Panel 06/03/2017 Sodium 137 mmol/L [...] 134 U/L 26-140 Ua - [facility]) 04/17/2017 Appearance clear Color yellow Glucose, Urine ([facility]/CMC/CTX) - Bilirubin - Ketones - SP Grav 1.015 Blood - PH 6.5 Protein - Urobil 0.2 Nitrite - Leukocytes (a/CMC/Centrex) - CBC Electronic ([facility]) 04/17/2017 WBC 6.5 3.6-9.6 RBC 4.16 3.90-5.70 Hemoglobin (Fma/CMC/CTX) 12.8 g/dL 12.1 - 17.2 Hematocrit (Fma/CMC/CTX) 37.6 % 36.1 - 50.3 Platelets 250 10^3/ul 150-400 Lymph% 30.2 % 17.0-48.0 Mixed% 4.8 Neutrophils % 65.0 Mean Corpuscular Vol 91 82.2-97.4 Mean Corpuscular Hemoglobin 30.7 27.6-33.3 Mean Corpuscular Hemo Concen 33.9 32.0-36.0 RDW 14.1 High 11.6-13.7 Mean Platelet Volume 7.9 5.5-11.0 Basic Metabolic Profile 02/18/2017 Sodium 138 mEq/L 134-149 Potassium 4.0 mEq/L 3.6-5.5 Chloride 99 mEq/L 94-112 Carbon Dioxide 25 mEq/L 21-32 Glucose 99 mg/dL 70-105 BUN 13 mg/dL 6-26 Creatinine 0.8 mg/dL 0.6-1.4 BUN/Creat Ratio 16.3 CALC 8.0-36.0 Calcium 9.4 mg/dL 8.6-10.2 GFR Non- >60 ml/min/1.73m^ >=60 GFR >60 ml/min/1.73m^ >=60 Complete Blood Count 02/18/2017 WBC 7.6 x10^3/UL 3.6-9.6 RBC 4.44 x10^6/UL 3.90-5.70 HGB 13.7 g/dL 12.1-17.2 HCT 40 % 36-50 MCV 91.0 fL 82.2-97.4 MCH 30.8 pg 27.6-33.3 MCHC 34.0 g/dL 33.0-35.5 RDW 13.2 % 11.6-13.7 PLT 247 x10^3/UL 150-400 MPV 8.5 fL 7.4-10.4 Gran # 5.7 x10^3/UL 1.5-7.2 Lymph# 1.6 x10^3/UL 0.7-4.9 Harris# 0.3 x10^3/UL 0.1-0.9 Gran % 72.9 % 42.2-75.2 Lymph % 22.4 % 20.5-51.1 Harris% 4.7 % 1.7-9.3 Laboratory test finding 09/19/2016 Hemoglobin A1c (Fma) 4.9 % % 4.1-5.7 Basic Metabolic Profile 09/19/2016 Sodium 136 mEq/L 134-149 Potassium 4.2 mEq/L 3.6-5.5 Chloride 101 mEq/L 94-112 Carbon Dioxide 24 mEq/L 21-32 Glucose 100 mg/dL 70-105 BUN 17 mg/dL 6-26 Creatinine 0.8 mg/dL 0.6-1.4 BUN/Creat Ratio 21.3 CALC 8.0-36.0 Calcium 9.9 mg/dL 8.6-10.2 GFR Non- >60 ml/min/1.73m^ >=60 GFR >60 ml/min/1.73m^ >=60 Laboratory test finding 08/29/2016 Magnesium, Serum 2.1 mEq/L 1.2-2.1 Complete Blood Count 08/29/2016 WBC 5.6 x10^3/UL 3.6-9.6 RBC 4.22 x10^6/UL 3.90-5.70 HGB 13.0 g/dL 12.1-17.2 HCT 38 % 36-50 MCV 91.0 fL 82.2-97.4 MCH 30.9 pg 27.6-33.3 MCHC 33.9 g/dL 33.0-35.5 RDW 13.9 % High 11.6-13.7 PLT 249 x10^3/UL 150-400 MPV 8.5 fL 7.4-10.4 Gran # 4.0 x10^3/UL 1.5-7.2 Lymph# 1.5 x10^3/UL 0.7-4.9 Harris# 0.1 x10^3/UL 0.1-0.9 Gran % 69.1 % 42.2-75.2 Lymph % 27.7 % 20.5-51.1 Harris% 3.2 % 1.7-9.3 Laboratory test finding 08/29/2016 [...] GFR >60 ml/min/1.73m^ >=60 Ua - Micro ([facility]) 12/23/2015 Appearance CLEAR Color YELLOW Glucose, Urine [...] 5.5-11.0 Laboratory test finding 02/18/2015 Urine Culture [facility] POSITIVE E.Coli 3 Ua - Non Micro ([facility]) 10/28/2014 Appearance CLEAR Color YELLOW Glucose, Urine (a/CMC/CTX) NEG Bilirubin NEG Ketones NEG SP Grav 1.010 Blood NEG PH 7.0 Protein NEG Urobil 0.2 Nitrite NEG Leukocytes ([place]/[facility] [place] [place]rex) NEG Complete Blood Count 10/28/2014 WBC 5.4 x10^3/UL 3.6-9.6 RBC 4.22 x10^6/UL 3.90-5.70 HGB 13.1 g/dL 12.1-17.2 HCT 39 % 36-50 MCV 92.0 fL 82.2-97.4 MCH 31.0 pg 27.6-33.3 MCHC 33.9 g/dL 33.0-35.5 RDW 13.0 % 11.6-13.7 PLT 263 x10^3/UL 150-400 MPV 8.3 fL 7.4-10.4 Gran # 3.6 x10^3/UL 1.5-7.2 Lymph# 1.6 x10^3/UL 0.7-4.9 Harris# 0.2 x10^3/UL 0.1-0.9 Gran % 65.1 % 42.2-75.2 Lymph % 30.0 % 20.5-51.1 Harris% 4.9 % 1.7-9.3 Comprehensive Metabolic Prof 10/28/2014 [...] 3.6 x10^3/UL 1.5-7.2 Lymph# 1.2 x10^3/UL 0.7-4.9 Harris# 0.2 x10^3/UL 0.1-0.9 Gran % 69.7 % 42.2-75.2 Lymph % 25.1 % 20.5-51.1 Harris% 5.2 % 1.7-9.3 Laboratory test finding 10/26/2013 [facility] scanned CBC Electronic ([facility]) 10/28/2012 WBC 5.0 3.6-9.6 RBC 4.36 3.90-5.70 [...] 30.0- 100.0 6 Ua - Non Micro ([facility]) 10/24/2012 Appearance CLEAR Color YELLOW Glucose, Urine (Fma/CMC/CTX) NEG Bilirubin NEG Ketones NEG SP Grav 1.005 Blood NEG PH 6.5 Protein NEG Urobil 0.2 Nitrite NEG Leukocytes ([facility]ma/CMC/Centrex) NEG Laboratory test finding 07/24/2011 TSH 2.30 [...] VLDL (Calculated) 12 mg/dL 0-50 CBC Electronic ([facility]) 07/24/2011 WBC 4.9 3.6-9.6 RBC 4.36 3.90-5.70 Hemoglobin (Fma/CMC/CTX) 13.4 g/dL 12.1 - 17.2 Hematocrit (a/CMC/CTX) 39.6 % 36.1 - 50.3 Platelets 266 10^3/ul 150-400 Lymph% 24.9 20.5-51.1 Mixed% 5.9 Neutrophils % 69.2 Mean Corpuscular Vol 91 82.2-97.4 Mean Corpuscular Hemoglobin 30.7 27.6-33.3 Mean Corpuscular Hemo Concen 33.8 32.0-36.0 RDW 12.0 11.6-13.7 Mean Platelet Volume 8.8 6.5-11.0 Ua - Non Micro ([facility]) 07/24/2011 Appearance CLEAR Color YELLOW Glucose NEG Bilirubin NEG Ketones NEG SP Grav 1.010 Blood NEG PH 7.0 Protein NEG Urobil 0.2 Nitrite NEG Leukocytes ([facility]ma/CMC/Centrex) NEG Laboratory test finding 07/24/2011 Vitamin D, [...] finding 07/21/2010 TSH 2.13 mIU/L 0.50-6.00 CBC (a) 07/21/2010 WBC 4.7 3.6-9.6 RBC 4.34 3.90-5.70 Hemoglobin (Fma/CMC/CTX) 13.5 g/dL 12.1 - 17.2 Hematocrit (Fma/CMC/CTX) 39.2 % 36.1 - 50.3 Platelets 220 10^3/ul 150-400 Lymph% 24.2 20.5-51.1 Mixed% 7.1 Neutrophils % 68.7 Mean Corpuscular Vol 90 82.2-97.4 Mean Corpuscular Hemoglobin 31.1 27.6-33.3 Mean Corpuscular Hemo Concen 34.4 32.0-36.0 RDW 11.9 11.6-13.7 Mean Platelet Volume 9.0 6.5-11.0 Ua - Non Micro (a) 07/20/2010 Appearance CLEAR Color YELLOW Glucose, Urine (Fma/CMC/CTX) NEG Bilirubin NEG Ketones NEG SP Grav 1.010 Blood NEG PH 7.0 Protein NEG Urobil 0.2 Nitrite NEG Leukocytes ([place]/[facility]) NEG Lipid Profile 06/16/2009 Cholesterol 224 mg/dL [...] 06/16/2009 Appearance clear Color yellow Glucose, Urine (a/CMC/CTX) neg Bilirubin neg Ketones neg SP Grav 1.010 Blood neg PH 7.5 Protein neg Urobil 0.2 Nitrite neg Leukocytes (a/CMC/Centrex) neg Complete Blood Count 06/16/2009 WBC 8.2 [...] Fluid (Fma/CMC/CTX) - Z#Comments - Ict Hemoccult ([facility]) 04/08/2008 Ict Hemoccult (1) NEG 03/30/08 Ict Hemoccult-(2) NEG 03/31/08 Ict-Hemoccult (3) NEG 10/02/08 Laboratory test finding 04/06/2008 Free T4 1.17 [...] 8 Laboratory test finding 05/09/2004 Urine Culture ([place] [place] NEGATIVE Laboratory test finding 05/09/2004 U[facility] [place] NEGATIVE Ua - Micro ([facility]) 05/09/2004 Appearance CLEAR Color LT YELLOW Glucose NEGATIVE Bilirubin NEGATIVE Ketones NEGATIVE SP Grav <1.005 Blood NEGATIVE PH 7.0 Protein NEGATIVE Urobil 0.2 Nitrite NEGATIVE Leukocytes NEGATIVE Hyaline - /Lpf Granular - /Lpf WBC'S 0-1 RBC'S - Mucus - /Lpf Epith RARE Bacteria RARE Amorphous - /Lpf Crystals - /Lpf Comments - Ua - Micro ([facility]) 04/25/2004 Appearance CLOUDY Color LT YELLOW Glucose NEG Bilirubin NEG Ketones 1+ SP Grav 1.010 Blood 3+ PH 6.0 Protein SSA 1+ Urobil 0.2 Nitrite NEG Leukocytes 2+ Hyaline - /Lpf Granular - /Lpf WBC'S PACKED RBC'S PACKED Mucus - /Lpf Epith - Bacteria - Amorphous - /Lpf Crystals - /Lpf Comments - CBC Electronic ([facility] [place] 10/29/2001 WBC 5.8 4.8-10.8 RBC 4.54 4.2-5.4 [...] 0-0.6 Abs Basophils 0 0-0.2 CBC Electronic ([facility] 04/29/2001 WBC 5.8 4.8-10.8 RBC 4.47 4.2-5.4 [...] cfu/mL 4 FASTING 5 RUN DATE: 11/26/13 [facility] LAB LIVE PAGE 1 RUN TIME: 0815 [address] [place], [place] [address] Specimen Inquiry Name: MICAH PALMER : [address]: Tobi Cavazos MD Acct: [id number] Unit: [id number] AGE: 68 Location: ENDO Re11/25/13 SEX: F Status: REG REF SPEC: [id number] [place]: 11/25/13- SUBM DR: Tobi Cavazos MD REQ: [id number] RECD: 11/25/135 STATUS: IZZY NESBITT DR: Edward Mclaughlin MD [...] performed at Main Lab DEPARTMENT OF PATHOLOGY, [address] [place] [address] Brian Solis M.D. Director [facility] # [id number] Vitamin D deficiency has been defined by the [place] [employer] and an Endocrine Society practice guideline as a level of serum 25-OH vitamin D less than 20 ng/mL (1,2). The Endocrine Society went on to further define vitamin D insufficiency as a level between 21 and 29 ng/mL (2). 1. IOM ([place] [employer]). 2010. Dietary reference intakes for calcium and D. [place]: The National Academies Press. 2. Efren Kaye, Sen LAWSON, et al. Evaluation, treatment, and prevention of vitamin D deficiency: an Endocrine Society clinical practice guideline. JCEM. 2010; 96(7):1911-30. 7 Vitamin D deficiency has been defined by the [place] [employer] and an Endocrine Society practice guideline as a level of serum 25-OH vitamin D less than 20 ng/mL (1,2). The Endocrine Society went on to further define vitamin D insufficiency as a level between 21 and 29 ng/mL (2). 1. IOM ([place] [employer]). 2010. Dietary reference intakes for calcium and D. [place]: The National Academies Press. 2. Efren Kaye, Sen LAWSON, et al. Evaluation, treatment, and prevention of vitamin D deficiency: an Endocrine Society clinical practice guideline. JCEM. 2010; 96(7):1911-30. 8 FASTING 9 RESULT RECHECKED Procedures Date CPT Code Description Status Comment 07/15/2017 Mammogram Completed 05/27/2017 14478 Dxa Bone Density Study One Or More Sites Completed Axial Skeleton 07/12/2016 Mammogram Completed 12/23/2015 79752 Destruction-1 Beign Lesion Completed 08/08/2015 52029 Remove Impacted Cerumen Completed 07/11/2015 Mammogram Completed 01/14/2015 78626 Dxa Bone Density Study One Or More Sites Completed Axial Skeleton 10/28/2014 23294 Electrocardiogram Complete Completed 07/09/2014 Mammogram Completed 11/25/2013 Colonoscopy Completed 10/26/2013 35632 Ultrasound Exam AAA diagnostic Completed 07/08/2013 Mammogram Completed 07/07/2012 Mammogram Completed 07/24/2011 57618 Vision Test- screening test of visual Completed acuity, quantitative, bila 07/24/2011 69258 Electrocardiogram Complete Completed 07/01/2011 Bone Mineral Density Test Completed osteopenia 06/21/2011 Mammogram Completed 07/20/2010 03575 Electrocardiogram Complete Completed 06/19/2010 Mammogram Completed 06/16/2009 Mammogram Completed 06/16/2009 79653 Electrocardiogram Complete Completed 12/17/2008 Mammogram Completed 06/17/2008 Mammogram Completed 04/30/2008 95856 Electrocardiogram Complete Completed 06/09/2007 Mammogram Completed 06/06/2006 Mammogram Completed 08/22/1998 20389 Destruction Of Flat Warts Or Molluscum Completed Contagiosum, Milia To 15 Encounters Type Date Location Provider CPT E/M Dx Office Visit 04/17/2017 2:00p Main Office Edward Mclaughlin M.D. 70562 Z85.42 F32.89 I49.3 E78.4 Z00.00 Office Visit 10/30/2016 11:30a Main Office Nikita Burton 61917 R23.8 R73.09 F32.0 Office Visit 08/08/2015 4:30p Main Office BOBBY Pang 98473 R05 H61.21 Office Visit 10/28/2014 10:00a Main Office Edward Mclaughlin M.D. 01711 V03.82 V04.81 V10.42 311 794.31 733.90 709.9 V12.72 V70.0 272.4 Office Visit 10/26/2013 9:00a [facility] Edward Mclaughlin M.D. 70713 V10.42 272.4 300.00 V70.0 Office Visit 10/24/2012 3:40p [facility] Edward Mclaughlin M.D. 09841 311 V10.42 733.90 V70.0 V03.82 Office Visit 09/29/2012 10:30a [place] [address] 465.9 Office Visit 07/24/2011 9:00a Main Office Edward Mclaughlin M.D. 50791 311 V10.42 733.90 V70.0 V72.0 Office Visit 10/26/2010 1:15p [facility] BOBBY Pang 46964 911.4 Office Visit 07/20/2010 1:00p Main Office Edward Mclaughlin M.D. 79865 733.90 V10.42 311 V70.0 V76.41 V04.81 Office Visit 06/16/2009 9:00a Main Office Edward Mclaughlin M.D. 45905 733.90 V10.42 272.4 311 V70.0 V76.41 Office Visit 12/06/2008 10:00a [facility] Office Edward Mclaughlin M.D. 06919 702.19 Office Visit 04/30/2008 1:00p Main Office Edward Mclaughlin M.D. 06662 424.0 733.90 V10.42 V70.0 V06.5 599.70 599.7 Office Visit 03/29/2008 4:40p [facility] Office Edward Mclaughlin M.D. 09412 787.91 Office Visit 07/10/2005 3:00p Main Office Kylee Mesa [facility] 14761 V58.69 380.4 Office Visit 04/25/2004 12:15p Main Office Edward Mclaughlin M.D. 27881 599.0 Office Visit 06/04/2001 4:00p [facility] Office Edward Mclaughlin M.D. 14123 Plan of Care 10/02/2017 - Ceci Gomez, NPJ02.9 Acute pharyngitis, unspecifiedNew Medication:Amoxicillin 500 mgNew Labs:QuickstrepComments:patient was instructed to call or return if [...] or concerns, worsening condition or failure to improve.AllComments:~B_~U_Medication Management~b_~u_ Patient Understands medications she's taking? Yes No Are there Barriers to Adherence? Yes No Has the patient been asked about herbal supplements and therapies, and OTC meds? Yes No ~B_~U_Care Plan~b_~u_1. Patient has been queried about patient's goals/preferences and functional/ lifestyle goals at relevant visits. If relevant, describe: [...]
--- OUTSIDE RECORDS SUMMARY | 2017-10-14 16:07 | XMS REPORT ---
:1945 External Reference #:[id number] Author Organization [facility] Address [address] [address] Phone [phone] Care Team Providers Name Role Phone Edward Mclaughlin MD Primary Care Physician Unavailable Payers Type Date Identification Numbers Payment Provider Subscriber Health Maintenance Policy Number: Medicare Blue Ppo Kathy Mendes [facility] (O) [id number] Group Number: [id number] [address] [address] PayID: [id number] EDDIE Rivas [id number] Medigap Part B Effective: Policy Number: [facility] Kathy Mendes [birth year]2004 [id number] [facility] Expires: 06/30/2013 PayID: [id number] [address] [address] Problems Description No Information Family History Date Family Member(s) Problem(s) Comments : (age 55 Father due to [place] Years) : (age 49 Mother due to Brain Years) Cancer Siblings 1 brother-hypercholestere kali Social History Type Date Description Comments Marital Status Lives With Mother Lives With in law Occupation Banking retired Cigarette Use Never Smoked Cigarettes ETOH Use Drinks Alcoholic Beverages Rarely Smoking Patient has never smoked Recreational Drug Use Denies Drug Use Daily Caffeine Comsumes on average 1 cup of decaff coffee per day Exercise Type/Frequency Exercises regularly General Hx Text Do you follow a special diet: No Do you have problems with snoring, day time fatigue: no Allergies, Adverse Reactions, Alerts Date Description Reaction Status Severity Comments 07/11/2016 Bactrim active rash 11/09/2014 NKDA inactive Medications Medication Date Status Form Strength Qnty SIG Indications Ordering Provider Potassium Active Tablets ER 10Meq 30tabs 1 by Qutaybeh Chloride Gosia 017 mouth S. ER every Maghaydah, day M.D. Citalopram Active Tablets 10mg 1 by Unknown Hydrobromide 000 mouth every day Diltiazem HCL Active Caps ER 120mg 1 by Unknown ER 000 24HR mouth every day Bisoprolol Active Tablets 5mg 90tabs 1 tablet Qutaybeh Fumarate 000 by mouth S. daily kole, M.D. Diltiazem HCL Hx Tablets 30mg 60tabs 1 by I49.3 Qutaybeh 017 - mouth S. twice a Maghaydah, 017 day M.D. Atenolol Hx Tablets 25mg 30tabs 1/2 by Qutaybeh 017 - mouth S. daily x Maghaydah, 017 4 days M.D. then d/c Toprol XL Hx Tablets ER 25mg 1 by Unknown 017 - 24HR mouth every 017 day Doxycycline 0 Hx Tablets 100mg 1 by Unknown Hyclate 000 - mouth twice a 015 day Vital Signs Date Vital Result Comment 09/18/2017 Height 64.5 inches 5'4.50" Weight 175.25 lb w/shoes Heart Rate 60 /min BP Systolic Sitting 110 mmHg L/A Reg Cuff BP Diastolic Sitting 60 mmHg L/A Reg Cuff BMI (Body Mass Index) 29.6 kg/m2 Ejection Fraction 50-55% Echo 09/13/2017 06/03/2017 Weight 175.12 lb without shoes Heart Rate 54 /min BP Systolic Sitting 114 mmHg Lue reg cuff BP Diastolic Sitting 64 mmHg Lue reg cuff Respiratory Rate 16 /min 03/19/2017 Height 64.5 inches 5'4.50" Weight 172.00 lb with shoes Heart Rate 72 /min BP Systolic Sitting 124 mmHg LA reg cuff BP Diastolic Sitting 80 mmHg LA reg cuff BMI (Body Mass Index) 29.1 kg/m2 Ejection Fraction 50%-55% echo 08/06/16 12/10/2016 Height 64.5 inches 5'4.50" Weight 173.75 lb w/shoes Heart Rate 56 /min BP Systolic Sitting 100 mmHg LA lg cuff BP Diastolic Sitting 62 mmHg LA lg cuff BMI (Body Mass Index) 29.4 kg/m2 Ejection Fraction 50-55% Echo 08/06/16 11/01/2016 Height 64.5 inches 5'4.50" Weight 171.00 lb w/shoes Heart Rate 60 /min BP Systolic Sitting 106 mmHg Ra reg cuff BP Diastolic Sitting 64 mmHg Ra reg cuff BMI (Body Mass Index) 28.9 kg/m2 Ejection Fraction 50-55% Echo 08/06/16 08/29/2016 Height 64.5 inches 5'4.50" Weight 168.00 lb w/ shoes Heart Rate 70 /min BP Systolic Sitting 100 mmHg LA lrg cuff BP Diastolic Sitting 68 mmHg LA lrg cuff BMI (Body Mass Index) 28.4 kg/m2 Ejection Fraction 50% - 55% echo 08/06/16 07/11/2016 Height 64.5 inches 5'4.50" Weight 167.75 lb with shoes Heart Rate 68 /min BP Systolic Sitting 110 mmHg LA reg cuff BP Diastolic Sitting 70 mmHg LA reg cuff BMI (Body Mass Index) 28.3 kg/m2 Ejection Fraction 55% - 60% echo 11/15/14 08/23/2015 Height 64.5 inches 5'4.50" Weight 170.50 lb with out shoes Heart Rate 78 /min BP Systolic Sitting 110 mmHg LA reg cuff BP Diastolic Sitting 72 mmHg LA reg cuff Respiratory Rate 17 /min BMI (Body Mass Index) 28.8 kg/m2 Ejection Fraction 55-60% date 11/15/14 ECHO 02:50 PM 12/28/2014 Height 64.5 inches 5'4.50" Weight 171.00 lb Heart Rate 76 /min BP Systolic 128 mmHg LA reg BP Diastolic 80 mmHg LA reg BMI (Body Mass Index) 28.9 kg/m2 Ejection Fraction 55-60% 11/15/14 11/11/2014 Height 65 inches 5'5" Weight 172.25 lb Heart Rate 64 /min BP Systolic Sitting 120 mmHg LA, reg BP Diastolic Sitting 66 mmHg LA, reg Respiratory Rate 16 /min BMI (Body Mass Index) 28.7 kg/m2 Ejection Fraction 60%-65% 05/21/08 echo Results Test Date Test Result H/L Range [...] test finding 06/03/2017 Magnesium 2.1 mg/dL 1.9-2.7 1 Because ethnic data is not always [...] 15-29 5 Kidney failure <15 (or dialysis) Procedures Date CPT Code Description Status 09/18/2017 36412 EKG Tracing & Interpretation Completed 09/13/2017 01365 ECHO Transthoracic, Real-Time 2D With Doppler And Color Completed Flow 09/13/2017 51994 ECHO Transthoracic, Real-Time 2D With Doppler And Color Completed Flow 09/03/2017 01851 Holter Monitor Review (24 hr)dr maldonado & ferdinand Completed only 09/02/2017 17538 ECG Monitor/Recording W/Visual Superimposition Scanning Completed 05/21/2017 61620 Holter Monitor Review (24 hr)dr maldonado & ferdinand Completed only 05/20/2017 23553 ECG Monitor/Recording W/Visual Superimposition Scanning Completed 03/19/2017 09801 EKG Tracing & Interpretation Completed 01/07/2017 90214 Holter Monitor Review (24 hr)dr joel mata; ferdinand Completed only 01/02/2017 68177 ECG Monitor/Recording W/Visual Superimposition Scanning Completed 10/25/2016 91246 Holter Monitor Review (24 hr)dr joel streeter Completed only 10/24/2016 04432 ECG Monitor/Recording W/Visual Superimposition Scanning Completed 08/31/2016 48379 Event Monitor/Phys Review/Interp. Completed 08/06/2016 83892 ECHO Transthoracic, Real-Time 2D With Doppler And Color Completed Flow 08/03/2016 98499 Holter Monitor Review (24 hr)dr joel mata; ferdinand Completed only 08/02/2016 48310 ECG Monitor/Recording W/Visual Superimposition Scanning Completed 07/11/2016 88496 EKG Tracing & Interpretation Completed 08/23/2015 98393 EKG Tracing & Interpretation Completed 12/20/2014 66474 ECHO Stress Test Incl Perf Contiuous ekg Monitoring Completed W/Phys Superv 11/23/2014 71604 Holter Monitor Review (24 hr)dr reevesamp; ferdinand Completed only 11/23/2014 57536 ECG Monitor/Recording W/Visual Superimposition Scanning Completed 11/18/2014 92590 Holter Monitor Review (24 hr)dr joel streeter Completed only 11/18/2014 57937 ECG Monitor/Recording W/Visual Superimposition Scanning Completed 11/15/2014 28172 ECHO Transthoracic, Real-Time 2D With Doppler And Color Completed Flow 11/11/2014 81811 EKG Tracing & Interpretation Completed 05/21/2008 67892 Color Doppler Completed 05/21/2008 50191 Color Doppler Completed 05/21/2008 37998 Pulse Doppler & Continuous Wave Completed 05/21/2008 87943 Echocardiogram Completed 05/21/2008 59240 Echocardiogram Completed Encounters Type Date Location Provider CPT E/M Dx Office Visit 06/03/2017 11:20a [facility] Keli Mcclellan, 05543 I49.3 M.D. I34.0 I36.1 E78.2 Office Visit 03/19/2017 10:00a [facility] Keli Mcclellan, 80436 I49.3 M.D. I34.0 I36.1 E78.2 Office Visit 12/10/2016 9:30a [facility] DERRICK Carvalho 86251 I49.3 T44.7x5A I49.1 Office Visit 11/01/2016 10:40a [facility] Ralphgavinojason Irene Mcclellan, 72077 I49.3 M.D. I49.1 T44.7x5A R53.83 R07.9 Office Visit 08/29/2016 10:00a [facility] DERRICK Carvalho 50047 I49.3 I34.0 I36.1 E78.2 I49.1 Office Visit 07/11/2016 1:40p [facility] Keli cMclellan, 70412 I34.0 M.D. I36.1 E78.2 I49.3 R94.31 Office Visit 08/23/2015 3:00p [facility] Angellajason Mcclellan, 01350 I34.0 M.D. I07.0 R94.31 E78.2 Office Visit 12/28/2014 3:00p [facility] Keli Mcclellan, 97666 427.89 M.D. 427.69 424.0 397.0 Office Visit 11/11/2014 1:40p [facility] Keli Mcclellan, 79285 794.31 M.D. 427.89 785.2 272.2 786.05 Plan of Care 09/18/2017 - Keli Mcclellan M.D.I49.3 Ventricular premature depolarizationFollow up:03/2018 ovI34.0 Nonrheumatic mitral (valve) [id number] Mixed hyperlipidemia
[2017-10-14] MEDS ORDERED: Ondansetron INJ* 2 MG/ML VIAL IV ONE (16:48)
--- NOTE | 2017-10-14 16:49 | ED ---
GI/ HPI - HPI Summary HPI Summary: 72-year-old female presents with nausea and vomiting for the past day. She states that she weeks ago she started on a course of amoxicillin for strep. She states that it really irritated stomach and she was having intermittent vomiting. She states that a couple days ago she was diagnosed with Lyme and was started on doxy. She states she has taken 2 doses of doxy and started profusely vomiting. She states she tried taking Zofran did not help. She states she has not been able to keep anything down over 24 hours. She states she has had diarrhea intermittently for the past 2 weeks but the diarrhea has resolved. She denies any bowel pain. She denies any chest pressure or SOB. She denies any fevers. She denies a sore throat. She denies any headache. She states that she feels very weak. She denies any flank pain. She denies any pain with urination. She has had her uterus removed. She denies any history of bowel obstruction. She has a history of PVCs. She was seen at her primary and sent in because she failed oral rehydration. - History of Current Complaint Chief Complaint: EDNauseaVomitDiarrh Time Seen by Provider: 10/14/17 16:41 Stated Complaint: POSS. DEHYDRATION Pain Intensity: 0 - Allergy/Home Medications Allergies/Adverse Reactions: Allergies Allergy/AdvReac Type Severity Reaction Status Date / Time sulfamethoxazole Allergy Rash Verified 10/14/17 17:32 [From Bactrim] trimethoprim [From Bactrim] Allergy Rash Verified 10/14/17 17:32 Home Medications: Home Medications Citalopram TAB* [CeleXA TAB*] 10 mg PO DAILY 10/14/17 [History Confirmed ] Diltiazem CD CAP* [Cardizem CD CAP*] 120 mg PO DAILY 10/14/17 [History Confirmed 10/14/17] Doxycycline Hyclate [Doxycycline Hyclate] 100 mg PO BID 10/14/17 [History Confirmed 10/14/17] Ondansetron TAB* [Zofran 4 MG Tab*] 4 mg PO Q6H PRN 10/14/17 [History Confirmed 10/14/17] Potassium Gluconate [Potassium] 600 mg PO DAILY 10/14/17 [History Confirmed ] PMH/Surg Hx/FS Hx/Imm Hx Endocrine/Hematology History: Denies: Hx Anticoagulant Therapy Cardiovascular History: Reports: Other Cardiovascular Problems/Disorders - PVCs Respiratory History: Denies: Hx Asthma - Cancer History Hx Chemotherapy: No Hx Radiation Therapy: Yes - UTERINE CA 1996 - Surgical History Surgery Procedure, Year, and Place: HYSTORECTOMY 1996 Infectious Disease History: No Infectious Disease History: Denies: Traveled Outside the [place] in Last 30 Days - Family History Known Family History: Negative: Diabetes - Social History Substance Use Type: Reports: None Smoking Status (MU): Never Smoked Tobacco Review of Systems Negative: Fever Negative: Chest Pain Negative: Shortness Of Breath Positive: Vomiting, Diarrhea, Nausea. Negative: Abdominal Pain All Other Systems Reviewed And Are Negative: Yes Physical Exam Triage Information Reviewed: Yes Vital Signs On Initial Exam: Initial Vitals Temp Pulse Resp BP Pulse Ox 97.9 F 73 18 106/61 100 10/14/17 15:12 10/14/17 15:12 10/14/17 15:12 10/14/17 15:12 10/14/17 15:12 Vital Signs Reviewed: Yes Appearance: Positive: Well-Appearing Skin: Positive: Warm, Dry Head/Face: Positive: Normal Head/Face Inspection Eyes: Positive: Normal, EOMI, EMIR, Conjunctiva Clear ENT: Positive: Pharynx normal Respiratory/Lung Sounds: Positive: Clear to Auscultation, Breath Sounds Present Cardiovascular: Positive: Normal, RRR Abdomen Description: Positive: Nontender, Soft Bowel Sounds: Positive: Present Musculoskeletal: Positive: Normal Neurological: Positive: Normal Psychiatric: Positive: Normal Diagnostics - Vital Signs Vital Signs Temp Pulse Resp BP Pulse Ox 10/14/17 15:12 97.9 F 73 18 106/61 100 - Laboratory Result Diagrams: 10/14/17 16:56 10/14/17 16:56 Lab Statement: Any lab studies that have been ordered have been reviewed, and results considered in the medical decision making process. Re-Evaluation - Re-Evaluation First Eval Re-Evaluation Time: 19:01 Change: Improved Comment: feeling a little better but still nausous Second Eval Re-Evaluation Time: 20:32 Change: Improved Comment: tolerated gingerale and crackers GIGU Course/Dx - Course Course Of Treatment: 72-year-old female presents with nausea and vomiting for the past day. She states that she weeks ago she started on a course of amoxicillin for strep. She states that it really irritated stomach and she was having intermittent vomiting. She states that a couple days ago she was diagnosed with Lyme and was started on doxy. She states she has taken 2 doses of doxy and started profusely vomiting. She states she tried taking Zofran did not help. She states she has not been able to keep anything down over 24 hours. She states she has had diarrhea intermittently for the past 2 weeks but the diarrhea has resolved. She denies any bowel pain. She denies any chest pressure or SOB. She denies any fevers. She denies a sore throat. She denies any headache. She states that she feels very weak. She denies any flank pain. She denies any pain with urination. She has had her uterus removed. She denies any history of bowel obstruction. On exam lungs clear to auscultation. Abdomen soft nontender. labs wbc normal. sodium and chloride is low. gave Zofran and still nauseous. He flu liters of fluid and tried some Reglan and patient was able to tolerate crackers rail. We'll discharge with Reglan. We' ll have follow-up with primary. Told to stop doxy at this time and primary can potential start Augmentin once patient recovers from the dehydration. Patient understands and agrees with plan. - Diagnoses Differential Diagnoses - Female: Dehydration, Gastroenteritis (Viral), Vomiting , Other - medication reaction Provider Diagnoses: Vomiting, Dehydration Discharge - Sign-Out/Discharge Documenting (check all that apply): Discharge - Discharge Plan Condition: Good Disposition: HOME Prescriptions: Metoclopramide TAB* [Reglan TAB*] 5 mg PO Q6H #12 tab Patient Education Materials: Acute Nausea and Vomiting (ED) Referrals: Edward Mclaughlin MD [Primary Care Provider] - Additional Instructions: Can take Zofran every 6 hours as needed for nausea, if zofran does not work try reglan every 6 hours Drink small amounts of fluid as tolerated When able to eat follow BRAT diet: Bananas, rice, applesauce, toast Take Tylenol for pain as needed every 6 hours Follow up with primary within 5 days Return to ED if develop fever that does not respond to Tylenol or ibuprofen, severe abdominal pain, or any new or worsening symptoms - Billing Disposition and Condition Condition: GOOD Disposition: HOME
[2017-10-14 17:19] LABS: ABS Basophils 0 10^3/ul (0-0.2); ABS Eosinophils 0.1 10^3/ul (0-0.6); ABS Lymphocytes 1.9 10^3/ul (1.0-4.8); ABS Monocytes 0.6 10^3/ul (0-0.8); ABS Neutrophils 5.4 10^3/ul (1.5-7.7); ABS Nucleated RBC 0 10^3/ul; Eosinophil % 1.2 % (0-6); Hematocrit 43 % (35-47); Hemoglobin 14.4 g/dl (12.0-16.0); Mean Corpuscular HGB Conc 34 g/dl (31-36); Mean Corpuscular Hemoglobin 31 pg (27-31); Mean Corpuscular Volume 91 fL (80-97); Mean Platelet Volume 9.6 um3 (7.4-10.4); Nucleated Red Blood Cells % 0; Platelet Count 293 10^3/ul (150-450); Red Blood Count 4.69 10^6/ul (4.0-5.4); Red Cell Distribution Width 13 % (10.5-15); White Blood Count 8.1 10^3/ul (3.5-10.8)
[2017-10-14] MEDS: NS 0.9% 1000 ML* 2,000 ML IV ONE ×2 (17:27→18:36)
[2017-10-14 17:37] LABS: EGFR Non-African American 51.2 (>60)
[2017-10-14 17:45] LABS: Urine Appearance Clear; Urine Blood Negative (Negative); Urine Color Amber; Urine Ketones 2+ (Negative); Urine Protein 2+(100 mg/dL) (Negative); Urine Specific Gravity 1.026 (1.010-1.030); Urine Urobilinogen Negative (Negative)
[2017-10-14] MEDS ORDERED: Metoclopramide IV* 5 MG/ML 2 ML VIAL IV SLOW PU ONE (19:00)
[2017-10-14] MEDS ORDERED: NS 0.9% 1000 ML* 1,000 ML IV ONE (19:00)
[2017-10-14 20:54] VITALS: BP 122/52
--- NOTE | 2017-10-18 09:02 | PN ---
Progress Note - Progress Note Date of Service: 10/14/17 Note: Patient was called at 9 AM on 10/18/17 Discussed with patient urine culture grew Proteus mirabilis I have advised to the patient I would like her to take Keflex, which is sensitive to the organism She states she has an appointment with her doctor today and due to her Lyme disease and feeling ill, she would like to discuss this with her doctor and not be prescribed anything through us at this time. I have discussed with her the medications that are sensitive, and that she should tell her doctor so her doctor can make an informed decision to place her on antibiotics She is okay with this plan Nothing further at this time Karen Ferguson PA-C
== END 2017-10-14 20:53 | disposition home or self-care (01) ==
LOC: ED 15:07
DX: E86.0 Dehydration (principal); R11.2 Nausea with vomiting, unspecified; R19.7 Diarrhea, unspecified
CPT/HCPCS: 36415; 80053; 81003; 81015; 83605; 83690; 83735; 85025; 86141; 87077; 87086; 87186; 96374; 99282; J2405; J2765